=== PATIENT | female | born 1975 | race Caucasian/White ===

== ENCOUNTER 2016-11-25 13:33 | Emergency (ER) | payer MEDICARE, MEDICAID ==
[~2016-11-25] VITALS: Ht 152.4 cm; Wt 56.7 kg
[~2016-11-25 13:33] MED LIST: BUPR-96 PO; GABA800T PO; PRED2.5T PO; SUMA100T PO
[2016-11-25] MEDS ORDERED: NITROGLYCERIN OINT 1 GM PACKET TP ONE ×2 (13:45→14:09)
[2016-11-25] MEDS ORDERED: IV NORMAL SALINE 500 ML BAG IV ONE (13:45)
[2016-11-25] MEDS ORDERED: BUPR150T5 PO (13:48)
[2016-11-25] MEDS ORDERED: GABA600T2 PO (13:48)
[2016-11-25 14:03] LABS: BASOPHILS # (AUTO) 0.2 K/uL (0.0-8.0); BASOPHILS % (AUTO) 3.2 % (0.0-2.0); EOSINOPHILS # (AUTO) 0.2 K/uL (0.0-0.7); EOSINOPHILS % (AUTO) 2.4 % (0.0-7.0); HEMATOCRIT 43.3 % (37-47); LYMPHOCYTES # (AUTO) 2.1 K/UL (0.8-4.8); LYMPHOCYTES % (AUTO) 28.7 % (20.5-51.5); MEAN CORPUSCULAR HEMOGLOBIN 27.8 UUG (27.0-31.0); MEAN CORPUSCULAR HGB CONC 32 g/dL (32.0-37.0); MEAN CORPUSCULAR VOLUME 86.2 FL (81.0-99.0); MONOCYTES # (AUTO) 0.5 K/UL (0.1-1.30); MONOCYTES % (AUTO) 6.9 % (0.0-11.0); NEUTROPHILS # (AUTO) 4.4 K/UL (1.8-8.9); NEUTROPHILS % (AUTO) 58.8 % (38.5-71.5); PLATELET COUNT (AUTO) 231 K/UL (150-450); RED BLOOD CELL COUNT(AUTO) 5.02 MIL/UL (4.2-5.4); RED CELL DISTRIBUTION WIDTH 13.3 % (11.5-14.5); WHITE BLOOD COUNT (AUTO) 7.4 K/UL (4.0-11.2)
--- NOTE | 2016-11-25 14:06 | NUR ---
PT IS IN ROOM #1B. DR ANGUIANO EVALUATED THE PT.
[2016-11-25 14:10] LABS: CARBON DIOXIDE 25 mmol/L (21-32); CHLORIDE 105 mmol/L (98-107); CREATININE 0.8 mg/dL (0.6-1.3); GFR 79 mL/min (>60); GLUCOSE 105 mg/dL (74-106); POTASSIUM 4.7 mmol/L (3.5-5.1); SODIUM SERUM 139 mmol/L (136-145); UREA NITROGEN, BLOOD 14 mg/dL (7-18)
[2016-11-25] MEDS ORDERED: ACETAMINOPHEN 325 MG TABLET PO ONE (14:15)
[2016-11-25 14:22] LABS: BAND % (MANUAL) 1 % (0-10); BASOPHILS % (MANUAL) 1 % (0-2); EOSINOPHILS % (MANUAL) 3 % (0-8); LYMPHOCYTES % (MANUAL) 23 % (20-40); MONOCYTES % (MANUAL) 8 % (2-10); NEUTROPHILS % (MANUAL) 64 % (42-75); PLATELET ESTIMATE ADEQUATE
[2016-11-25 14:29] LABS: ALANINE AMINOTRANSFERASE 24 U/L (14-59); ALKALINE PHOSPHATASE 60 U/L (50-136); ASPARTATE AMINOTRANSFERASE 27 U/L (15-37); BILIRUBIN,DIRECT < 0.1 mg/dL (0.0-0.2); BILIRUBIN,TOTAL 0.4 mg/dL (0.2-1.0); NT-PRO BNP 178 pg/mL (0-125); TOTAL PROTEIN, SERUM 7.4 g/dL (6.4-8.2)
[2016-11-25] MEDS ORDERED: ACETAMINOPHEN ES 500 MG TABLET ONE (14:34)
[2016-11-25] MEDS ORDERED: MORPHINE SULFATE 4 MG/1 ML DISP.SYRIN IV ONE ×2 (15:00→15:45)
[2016-11-25] MEDS ORDERED: ONDANSETRON IV *ER 4 MG/2 ML VIAL IV ONE ×2 (15:00→15:45)
[2016-11-25] MEDS ORDERED: MORPHINE SULFATE 4 MG/1 ML DISP.SYRIN ONE ×2 (15:04→15:57)
[2016-11-25] MEDS ORDERED: ONDANSETRON 4 MG/2 ML VIAL ONE ×2 (15:05→16:07)
--- NOTE | 2016-11-25 16:24 | NUR ---
PT WAS D/C TO HOME. D/C INSTRUCTIONS GIVEN TO THE PT.
[2016-11-25 16:26] VITALS: BP 121/79
== END 2016-11-25 16:27 | disposition home or self-care (01) ==
LOC: ER 13:33
DX: I10 Essential (primary) hypertension (principal); R51 Headache; F32.9 Major depressive disorder, single episode, unspecified; I50.9 Heart failure, unspecified; I25.2 Old myocardial infarction; Z88.2 Allergy status to sulfonamides; Z88.6 Allergy status to analgesic agent; Z88.8 Allergy status to other drugs, medicaments and biological substances
CPT/HCPCS: 36415; 70030-TC; 70450; 71010; 85025; 85730; 93005; A4663; J2270; J2405; J7030

== ENCOUNTER 2018-06-05 15:29 | Emergency (ER) | payer MEDICARE, MEDICAID ==
[~2018-06-05 15:29] MED LIST changes: -BUPR-96 PO; +BUPR150T5 PO; +GABA600T2 PO; -GABA800T PO
--- NOTE | 2018-06-05 15:45 | NUR ---
PT WAS CALLED TO TRIAGE. NO RESPONSE.
--- NOTE | 2018-06-05 16:06 | NUR ---
PT WAS CALLED TO TRIAGE AREA , NO RESPONSE.
== END 2018-06-05 17:50 | disposition left against medical advice (07) ==
LOC: ER 15:33
DX: Z53.21 Procedure and treatment not carried out due to patient leaving prior to being seen by health care provider (principal)

== ENCOUNTER 2019-05-16 21:12 | Emergency (ER) | payer MEDICARE, MEDICAID ==
[~2019-05-16] VITALS: Ht 165.1 cm; Wt 57.2 kg
[~2019-05-16 21:12] MED LIST changes: +GABA600T12 PO; -GABA600T2 PO
--- NOTE | 2019-05-16 21:32 | NUR ---
Dr. Oliver at bedside for MSE.
--- NOTE | 2019-05-16 21:45 | NUR ---
Patient eloped from facility. ER physician notified.
== END 2019-05-16 21:48 | disposition left against medical advice (07) ==
LOC: ER 21:15
DX: R55 Syncope and collapse (principal); R14.0 Abdominal distension (gaseous); I11.0 Hypertensive heart disease with heart failure; I50.9 Heart failure, unspecified; F32.9 Major depressive disorder, single episode, unspecified; I25.2 Old myocardial infarction; Z88.2 Allergy status to sulfonamides; Z88.8 Allergy status to other drugs, medicaments and biological substances; Z88.5 Allergy status to narcotic agent; Z79.899 Other long term (current) drug therapy
CPT/HCPCS: A4663

== ENCOUNTER 2019-06-16 02:24 | Emergency (ER) | payer MEDICARE, MEDICAID ==
[~2019-06-16] VITALS: Ht 152.4 cm; Wt 54.4 kg
[2019-06-16] MEDS ORDERED: CLON0.1T PO (02:40)
[2019-06-16] MEDS ORDERED: OXYC15TA2 PO (02:40)
[2019-06-16] MEDS ORDERED: DEXA4VIA47 IM (02:40)
[2019-06-16] MEDS ORDERED: IV NORMAL SALINE 1000 ML BAG IV ONE (03:15)
[2019-06-16] MEDS ORDERED: MORPHINE SULFATE 2 MG/1 ML DISP.SYRIN IV ONE (03:15)
[2019-06-16] MEDS ORDERED: ONDANSETRON 4 MG/2 ML VIAL IV ONE (03:15)
[2019-06-16 03:16] LABS: *URINE HCG, QUAL NEGATIVE (NEGATIVE)
[2019-06-16] MEDS ORDERED: MORPHINE SULFATE 4 MG/1 ML DISP.SYRIN ONE (03:19)
[2019-06-16] MEDS ORDERED: ONDANSETRON 4 MG/2 ML VIAL ONE (03:19)
[2019-06-16 03:21] LABS: *BILIRUBIN,URIN NEGATIVE (NEGATIVE); *BLOOD, URINE NEGATIVE (NEGATIVE); *CLARITY,URINE CLEAR (CLEAR); *COLOR,URINE YELLOW (YELLOW); *KETONES,URINE NEGATIVE (NEGATIVE); LEUKOCYTE ESTERASE ,URINE NEGATIVE (NEGATIVE); NITRITE, URINE NEGATIVE (NEGATIVE); PH,URINE 6.5 (5.0-8.0); UGLUCOSE NEGATIVE (NEGATIVE)
[2019-06-16 03:22] LABS: BACTERIA,URINE FEW /HPF (NONE SEEN); RBC,URINE 0-3 /HPF (0-3); WBC,URINE 0-3 /HPF (0-3)
[2019-06-16 03:38] LABS: BASOPHILS # (AUTO) 0.2 K/uL (0.0-8.0); BASOPHILS % (AUTO) 1.4 % (0.0-2.0); EOSINOPHILS # (AUTO) 0.1 K/uL (0.0-0.7); EOSINOPHILS % (AUTO) 0.9 % (0.0-7.0); HEMATOCRIT 42.8 % (31.2-41.9); HEMOGLOBIN 13.9 g/dL (10.9-14.3); LYMPHOCYTES # (AUTO) 3.6 K/uL (20.0-40.0); LYMPHOCYTES % (AUTO) 31.6 % (20.5-51.5); MEAN CORPUSCULAR HEMOGLOBIN 27.5 uug (24.7-32.8); MEAN CORPUSCULAR HGB CONC 32 g/dL (32.3-35.6); MEAN CORPUSCULAR VOLUME 84.8 fL (75.5-95.3); MONOCYTES # (AUTO) 0.5 K/uL (2.0-10.0); MONOCYTES % (AUTO) 4.7 % (0.0-11.0); NEUTROPHILS # (AUTO) 6.9 K/uL (1.8-8.9); NEUTROPHILS % (AUTO) 61.4 % (38.5-71.5); PLATELET COUNT (AUTO) 222 K/uL (179-408); RED BLOOD CELL COUNT(AUTO) 5.05 MIL/uL (3.63-4.92); WHITE BLOOD COUNT (AUTO) 11.3 K/uL (3.8-11.8)
[2019-06-16 03:40] LABS: CREATININE 0.7 mg/dL (0.6-1.3); POTASSIUM 3.5 mmol/L (3.5-5.1)
[2019-06-16 03:45] LABS: BILIRUBIN,DIRECT 0.1 mg/dL (0.0-0.2); BILIRUBIN,TOTAL 0.2 mg/dL (0.2-1.0); TOTAL PROTEIN, SERUM 6.6 g/dL (6.4-8.2)
--- NOTE | 2019-06-16 03:49 | NUR ---
Patient in room 2B alert responsive c/o abd and back pain, IV inserted o.9ns infusing medicated for pain awaiting ct scan and other xrays.
--- NOTE | 2019-06-16 03:55 | NUR ---
Patient up to bathroom to viod post viod bladder scan done 36ml seen on the scan
== END 2019-06-16 06:32 | disposition home or self-care (01) ==
LOC: ER 02:29
DX: R10.9 Unspecified abdominal pain (principal); R11.10 Vomiting, unspecified; R19.7 Diarrhea, unspecified; M54.9 Dorsalgia, unspecified; I11.0 Hypertensive heart disease with heart failure; I50.9 Heart failure, unspecified; F32.9 Major depressive disorder, single episode, unspecified; I25.2 Old myocardial infarction; Z88.2 Allergy status to sulfonamides; Z88.8 Allergy status to other drugs, medicaments and biological substances; Z88.5 Allergy status to narcotic agent; Z79.899 Other long term (current) drug therapy
CPT/HCPCS: 36415; 71045; 72072; 74176; 80048; 80076; 81000; 81001; 83690; 84703; 85025; 87040 ×2; 87086; 96374; 96375; 99284; J2270; J2405; A4663; J7030